=== PATIENT | male | born 1975 | race African-American/Black ===

== ENCOUNTER 2017-06-15 13:28 | Emergency (ER) | payer OTHER ==
[~2017-06-15] VITALS: Ht 180.3 cm; Wt 95.0 kg
[2017-06-15] MEDS ORDERED: KETOROLAC 60MG/2ML VIAL IM ONE (18:45)
[2017-06-15 20:39] VITALS: BP 121/79
== END 2017-06-15 21:07 | disposition home or self-care (01) ==
LOC: ER 13:48
DX: S60.551A Superficial foreign body of right hand, initial encounter (principal); L03.90 Cellulitis, unspecified; Z88.0 Allergy status to penicillin; X58.XXXA Exposure to other specified factors, initial encounter; Y93.89 Activity, other specified; Y92.89 Other specified places as the place of occurrence of the external cause; Y99.8 Other external cause status
CPT/HCPCS: 73130; 96372; 99284; J1885

== ENCOUNTER 2018-06-14 13:15 | Inpatient (IN) | payer SELFPAY ==
[~2018-06-14] VITALS: Ht 180.3 cm; Wt 81.6 kg
[2018-06-14] MEDS ORDERED: SODIUM CHLORIDE 0.9% 1,000 ML IV ONE (13:50)
[2018-06-14] MEDS ORDERED: ASPIRIN 81MG TABLET PO ONE (14:00)
[2018-06-14] MEDS ORDERED: ATENOLOL 25MG TABLET PO ONE (14:00)
[2018-06-14] MEDS ORDERED: LORAZEPAM 2MG/ML CPJ ONE (14:27)
[2018-06-14] MEDS ORDERED: LORAZEPAM 2MG/ML CPJ IV ONE (14:30)
[2018-06-14] MEDS ORDERED: LEVETIRACETAM 500MG PREMIX 100 ML IV ONE (14:30)
[2018-06-14 15:18] LABS: HEMATOCRIT. 37.1 % (42.0-52.0); HEMOGLOBIN. 12.4 g/dL (14.0-18.0); MEAN CORPUSCULAR HEMOGLOBIN 32.1 pg (28.0-32.0); MEAN CORPUSCULAR VOLUME 96.4 fL (80.0-94.0); MEAN PLATELET VOLUME 10.7 fl (7.4-10.4); PLATELET 83 x1000/uL (130-400); RED BLOOD CELL COUNT 3.85 mill/uL (4.7-6.1); RED CELL DISTRIBUTION WIDTH 25.2 % (11.6-14.6)
[2018-06-14 15:26] LABS: CHLORIDE 92 mEq/L (98-107)
[2018-06-14 15:36] LABS: D-DIMER 2.81 mg/L FEU (<0.50); INR 1.2; PARTIAL THROMBOPLASTIN TIME 26.4 sec (23.4-31.0); PROTHROMBIN TIME 12.2 sec (9.1-11.1)
[2018-06-14 15:49] LABS: PLATELET ESTIMATE DECREASED
[2018-06-14] MEDS ORDERED: SODIUM CHLORIDE 0.9% 1000ML BAG (SEPSIS BOLUS) IV ONE (16:00)
[2018-06-14] MEDS ORDERED: FOLIC ACID 1 MG, THIAMINE HCL 100 MG, MVI, ADULT NO.1 10 ML in DEXTROSE 5% WATER 1,000 ML IV ONE ×4 (16:45)
[2018-06-14] MEDS ORDERED: LEVOFLOXACIN 750MG PREMIX 150 ML IV ONE (17:00)
[2018-06-14] MEDS ORDERED: CLONIDINE 0.1MG TABLET PO PRN (17:15)
[2018-06-14] MEDS ORDERED: DOCUSATE SODIUM 100MG CAPSULE PO PRN (17:15)
[2018-06-14] MEDS ORDERED: ONDANSETRON HCL 4MG/2ML INJ IV PRN (17:15)
[2018-06-14] MEDS ORDERED: POTASSIUM CHLORIDE 20MEQ TABLET SR PO SCH (17:30)
[2018-06-14 17:51] LABS: BG BASE EXCESS -1.9 mmol/L (-2.0-2.0); BG CARBOXYHEMOGLOBIN 0.3 % (0.5-1.5); BG DEOXYHEMOGLOBIN 1.9 % (0.0-5.0); BG FRACTION INSPIRED OXYGEN 28; BG METHEMOGLOBIN 0.4 % (0.0-1.5); BG OXYGEN SATURATION 98.1 % (92.0-98.5); BG OXYHEMOGLOBIN 97.4 % (94.0-97.0); BG PH 7.463 (7.350-7.450); BG PO2 125.7 mmHg (75.0-100.0); BG SAMPLE SITE RIGHT RADIAL; BG TOTAL HEMOGLOBIN 11.6 g/dL (12.0-18.0); BG VENT MODE NASAL CANNULA
[2018-06-14] MEDS ORDERED: IOHEXOL-350 100 ML BOTTLE ONE ×2 (18:14→22:15)
[2018-06-15] VITALS (7 sets, daily range): BP systolic 107–137; BP diastolic 50–87
[2018-06-15] MEDS ORDERED: SODIUM BICARBONATE 8.4% 1 MEQ/ML 50ML SYR IV SCH (02:00)
[2018-06-15] MEDS: DEXT 5%/0.45% NACL 1000ML 1,000 ML IV SCH ×2 (02:51→08:39)
[2018-06-15] MEDS: HYDROCODONE/ACETAMINOPHEN 5/325MG TABLET PO PRN ×2 (03:18→08:39)
[2018-06-15] MEDS: MAGNESIUM/ALUMINUM HYDROXIDE/SIMETHICONE 30ML UDC PO PRN ×2 (08:37→22:05)
[2018-06-15] MEDS: ASPIRIN 81MG EC TABLET PO SCH (08:38)
[2018-06-15] MEDS ORDERED: METOPROLOL TARTRATE 25MG TABLET PO SCH (09:00)
[2018-06-15 09:07] LABS: CLARITY URINE CLEAR (CLEAR); COLOR URINE YELLOW (YELLOW); KETONES URINE NEGATIVE (NEGATIVE); LEUKOCYTE ESTERASE URINE NEGATIVE (NEGATIVE); NITRITE URINE NEGATIVE (NEGATIVE); OCCULT BLOOD URINE 1+ (NEGATIVE); PH URINE 6.5 (4.5-8.0); PROTEIN URINE NEGATIVE (NEGATIVE); SPECIFIC GRAVITY URINE 1.008 (1.005-1.030)
[2018-06-15 09:30] LABS: *AMPHETAMINES SCREEN URINE NEGATIVE (NEGATIVE); *BARBITURATES SCREEN URINE NEGATIVE (NEGATIVE); *BENZODIAZEPINES SCREEN URINE NEGATIVE (NEGATIVE); *COCAINE SCREEN URINE NEGATIVE (NEGATIVE); CANNABINOID URINE SCREEN NEGATIVE (NEGATIVE); METHADONE URINE SCREEN NEGATIVE (NEGATIVE); OPIATES URINE SCREEN PRESUMTIVE POSITIVE (NEGATIVE); PHENCYCLIDINE URINE SCREEN NEGATIVE (NEGATIVE)
[2018-06-15 10:19] LABS: HEMATOCRIT. 34.2 % (42.0-52.0); HEMOGLOBIN. 11.9 g/dL (14.0-18.0); MEAN CORPUSCULAR HEMOGLOBIN 32.9 pg (28.0-32.0); PLATELET 63 x1000/uL (130-400); RED CELL DISTRIBUTION WIDTH 24.5 % (11.6-14.6)
[2018-06-15 10:23] LABS: CHLORIDE 99 mEq/L (98-107)
[2018-06-15 10:39] LABS: HDL CHOLESTEROL 12 mg/dL (40-59); LDL CHOLESTEROL 336 mg/dL (5-100); T4 FREE 0.94 ng/dL (0.76-1.46)
[2018-06-15] MEDS ORDERED: POTASSIUM CHLORIDE 20MEQ TABLET SR PO NR (11:15)
[2018-06-15 11:32] LABS: NUCLEATED RED BLOOD CELLS 1 /100 WBC; PLATELET ESTIMATE DECREASED
[2018-06-15] MEDS: LORAZEPAM 2MG/ML CPJ IV PRN ×2 (12:50→22:10)
[2018-06-15] MEDS: METOPROLOL TARTRATE 50MG TABLET PO SCH (20:22)
[2018-06-15] MEDS: CHLORDIAZEPOXIDE 25MG CAPSULE PO SCH (21:12)
[2018-06-16] VITALS: BP 110/58
[2018-06-16 04:00] VITALS: BP 126/73
[2018-06-16] MEDS: CHLORDIAZEPOXIDE 25MG CAPSULE PO SCH ×3 (05:49→21:08)
[2018-06-16 08:00] VITALS: BP 120/86
[2018-06-16] MEDS: ASPIRIN 81MG EC TABLET PO SCH (08:20)
[2018-06-16] MEDS: METOPROLOL TARTRATE 50MG TABLET PO SCH ×2 (08:20→21:08)
[2018-06-16 10:01] LABS: HEMATOCRIT. 33.3 % (42.0-52.0); HEMOGLOBIN. 11.3 g/dL (14.0-18.0); MEAN CORPUSCULAR HEMOGLOBIN 32.3 pg (28.0-32.0); MEAN CORPUSCULAR VOLUME 95.7 fL (80.0-94.0); MEAN PLATELET VOLUME 10.8 fl (7.4-10.4); PLATELET 63 x1000/uL (130-400); RED BLOOD CELL COUNT 3.48 mill/uL (4.7-6.1); RED CELL DISTRIBUTION WIDTH 25.2 % (11.6-14.6)
[2018-06-16 10:11] LABS: CHLORIDE 97 mEq/L (98-107)
[2018-06-16 10:25] LABS: CREATINE KINASE 424 IU/L (39-308); CREATINE KINASE MB FRACTION 2.4 ng/mL (0.5-3.6); HDL CHOLESTEROL 11 mg/dL (40-59); LDL CHOLESTEROL 355 mg/dL (5-100)
[2018-06-16] MEDS: MAGNESIUM/ALUMINUM HYDROXIDE/SIMETHICONE 30ML UDC PO PRN (11:25)
[2018-06-16] MEDS ORDERED: POTASSIUM CHLORIDE 20MEQ TABLET SR PO NR (11:45)
[2018-06-16 12:00] VITALS: BP 120/80
[2018-06-16 12:35] LABS: CHLORIDE 100 mEq/L (98-107)
[2018-06-16 13:42] LABS: NUCLEATED RED BLOOD CELLS 3 /100 WBC
[2018-06-16 13:43] LABS: PLATELET ESTIMATE DECREASED
[2018-06-16 16:00] VITALS: BP 125/85
[2018-06-16 20:00] VITALS: BP 124/93
[2018-06-16] MEDS ORDERED: ATORVASTATIN CALCIUM 40MG TABLET PO SCH (21:00)
[2018-06-17] VITALS: BP 116/74
[2018-06-17 04:00] VITALS: BP 114/70
[2018-06-17 06:29] LABS: HEMATOCRIT. 35.8 % (42.0-52.0); HEMOGLOBIN. 11.9 g/dL (14.0-18.0); MEAN CORPUSCULAR HEMOGLOBIN 32.5 pg (28.0-32.0); MEAN CORPUSCULAR VOLUME 97.9 fL (80.0-94.0); MEAN PLATELET VOLUME 9.9 fl (7.4-10.4); PLATELET 70 x1000/uL (130-400); RED BLOOD CELL COUNT 3.66 mill/uL (4.7-6.1); RED CELL DISTRIBUTION WIDTH 25.2 % (11.6-14.6)
[2018-06-17] MEDS: CHLORDIAZEPOXIDE 25MG CAPSULE PO SCH (06:29)
[2018-06-17 06:43] LABS: CHLORIDE 102 mEq/L (98-107)
[2018-06-17 08:00] VITALS: BP 130/91
[2018-06-17 09:37] LABS: NUCLEATED RED BLOOD CELLS 1 /100 WBC; PLATELET ESTIMATE MARKEDLY DECREASED
[2018-06-17] MEDS: ASPIRIN 81MG EC TABLET PO SCH (09:51)
[2018-06-17] MEDS: METOPROLOL TARTRATE 50MG TABLET PO SCH (09:51)
[2018-06-17 11:42] VITALS: BP 130/91
== END 2018-06-17 12:14 | disposition home or self-care (01) | DRG 201 ==
LOC: ER 13:15 → EDBEDREQSVC 15:57 → ENRESERV 16:17 → CANRESERV 16:17 → ENRESERV 16:21 → CANRESERV 16:21 → SUPCPDRO 17:13 → 8WST 17:35 → EDBEDREQTM 17:39 → EDBEDREQ 17:39 → ENRESERV 21:55
PROVIDERS: ADMIT Hospitalist; ATTEND Hospitalist
DX: I47.1 Supraventricular tachycardia (principal); D69.6 Thrombocytopenia, unspecified; E87.2 Acidosis; E46 Unspecified protein-calorie malnutrition; R56.9 Unspecified convulsions; R07.9 Chest pain, unspecified; F10.239 Alcohol dependence with withdrawal, unspecified; E78.5 Hyperlipidemia, unspecified; E87.6 Hypokalemia; R74.0 Nonspecific elevation of levels of transaminase and lactic acid dehydrogenase [LDH]; F12.90 Cannabis use, unspecified, uncomplicated; I10 Essential (primary) hypertension; Z88.0 Allergy status to penicillin; Z68.25 Body mass index [BMI] 25.0-25.9, adult
CPT/HCPCS: 36415; 36600; 71045; 71275; 80048; 80061; 80305; 82375; 82550; 82553; 82805; 83605; 83735; 83880; 84439; 84443; 84484; 85379; 93005; 93306; 96365; 96366; 96367; 96375; 99291; G0482; J1953; J1956; J2060; J3411; J3490; J7030; J7040; J7070; Q9967

== ENCOUNTER 2018-08-24 23:44 | Emergency (ER) | payer MEDICAID, OTHER ==
[~2018-08-24] VITALS: Ht 180.3 cm; Wt 91.0 kg
[2018-08-25 03:49] LABS: BASOPHILS % 0.4 % (0.0-2.0); HEMATOCRIT. 41.8 % (42.0-52.0); HEMOGLOBIN. 13.8 g/dL (14.0-18.0); MEAN CORPUSCULAR HEMOGLOBIN 29.9 pg (28.0-32.0); MEAN CORPUSCULAR VOLUME 90.8 fL (80.0-94.0); MEAN PLATELET VOLUME 10.1 fl (7.4-10.4); MONOCYTES % 5.4 % (2.0-8.0); NEUTROPHILS % 26.2 % (40.0-76.0); PLATELET 63 x1000/uL (130-400); RED BLOOD CELL COUNT 4.61 mill/uL (4.7-6.1); RED CELL DISTRIBUTION WIDTH 16.8 % (11.6-14.6)
[2018-08-25 03:55] LABS: CHLORIDE 93 mEq/L (98-107)
[2018-08-25] MEDS ORDERED: POTASSIUM CHLORIDE 20MEQ TABLET SR PO ONE (05:15)
[2018-08-25 05:41] VITALS: BP 133/89
[2018-11-15] MEDS ORDERED: FOLI-43 PO (16:54)
[2018-11-15] MEDS ORDERED: LACT10SO7 PO (16:54)
[2018-11-15] MEDS ORDERED: KEPP500 MT (16:54)
[2018-11-15] MEDS ORDERED: THIA100T72 PO (16:54)
== END 2018-08-25 05:43 | disposition home or self-care (01) ==
LOC: ER 23:44
DX: R07.89 Other chest pain (principal); E87.6 Hypokalemia; E78.00 Pure hypercholesterolemia, unspecified; F12.10 Cannabis abuse, uncomplicated; Z88.0 Allergy status to penicillin
CPT/HCPCS: 36415; 71045; 80053; 83880; 84484; 85025; 93005; 99284; Z7610

== ENCOUNTER 2018-11-11 22:54 | Inpatient (IN) | payer MEDICAID ==
[~2018-11-11] VITALS: Ht 180.3 cm; Wt 95.3 kg
[2018-11-12] MEDS ORDERED: SODIUM CHLORIDE 0.9% 1,000 ML IV ONE ×2 (01:21→05:15)
[2018-11-12 01:44] LABS: BASOPHILS % 0.6 % (0.0-2.0); EOSINOPHILS % 0.1 % (0.0-5.0); HEMATOCRIT. 37.7 % (42.0-52.0); HEMOGLOBIN. 13.5 g/dL (14.0-18.0); LYMPHOCYTES % 16.9 % (20.0-50.0); MEAN CORPUSCULAR VOLUME 83.4 fL (80.0-94.0); MONOCYTES % 8.1 % (2.0-8.0); NEUTROPHILS % 74.3 % (40.0-76.0); RED BLOOD CELL COUNT 4.52 mill/uL (4.7-6.1); RED CELL DISTRIBUTION WIDTH 16.3 % (11.6-14.6)
[2018-11-12] MEDS ORDERED: LIDOCAINE HCL/EPINEPHRINE 1%-EPI 1:100,000 30 ML VIAL INFIL ONE (02:00)
[2018-11-12] MEDS ORDERED: ONDANSETRON HCL 4MG/2ML INJ IV ONE (02:00)
[2018-11-12 02:05] LABS: PLATELET 237 x1000/uL (130-400)
[2018-11-12 02:17] LABS: PARTIAL THROMBOPLASTIN TIME 23.8 sec (23.4-31.0); PROTHROMBIN TIME 10.4 sec (9.6-11.0)
[2018-11-12 02:18] LABS: CHLORIDE 83 mEq/L (98-107)
[2018-11-12 02:22] LABS: ETHANOL BLOOD < 10 mg/dL
[2018-11-12] MEDS ORDERED: LIDOCAINE HCL/EPINEPHRINE 1%-EPI 1:100,000 20 ML VIAL INFIL SCH (02:45)
[2018-11-12 02:56] LABS: CLARITY URINE TURBID (CLEAR); COLOR URINE DARK YELLOW (YELLOW); KETONES URINE TRACE (NEGATIVE); LEUKOCYTE ESTERASE URINE 1+ (NEGATIVE); NITRITE URINE POSITIVE (NEGATIVE); OCCULT BLOOD URINE 3+ (NEGATIVE); PROTEIN URINE 2+ (NEGATIVE); SPECIFIC GRAVITY URINE 1.016 (1.005-1.030)
[2018-11-12] MEDS ORDERED: LORAZEPAM 2MG/ML CPJ IV ONE ×3 (03:00→06:00)
[2018-11-12] MEDS ORDERED: HALOPERIDOL LACTATE 5MG/ML VIAL IM ONE (06:15)
[2018-11-12] MEDS ORDERED: DEXT 5%/0.9% NACL 1,000 ML IV ONE (09:30)
[2018-11-12] MEDS ORDERED: LEVETIRACETAM 500MG PREMIX 100 ML IV ONE (10:45)
[2018-11-12] MEDS ORDERED: CEFTRIAXONE 1 G PREMIX 50 ML IV NR (11:30)
[2018-11-12 12:25] VITALS: BP 122/92
[2018-11-12 13:30] LABS: CHLORIDE 90 mEq/L (98-107)
[2018-11-12 13:37] LABS: PHOSPHORUS 3.4 mg/dL (2.5-4.9)
[2018-11-12 13:38] LABS: BETA HYDROXYBUTYRATE 0.9 mMol/L (0.0-0.3)
[2018-11-12 14:00] VITALS: BP 114/74
[2018-11-12 14:28] LABS: HEPATITIS B SURFACE ANTIGEN NEGATIVE
[2018-11-12 14:57] LABS: HEPATITIS A AB IGM NEGATIVE (NEGATIVE)
[2018-11-12] MEDS: DEXT 5%/0.9% NACL 1,000 ML IV SCH (15:55)
[2018-11-12] MEDS: CEFTRIAXONE 1 G PREMIX 50 ML IV SCH (15:55)
[2018-11-12 16:00] VITALS: BP 124/75
[2018-11-12] MEDS ORDERED: NA PHOS,M-B/NA PHOS,DI-BA ENEMA 118ML PR PRN (17:00)
[2018-11-12] MEDS ORDERED: CLONIDINE 0.1MG TABLET PO PRN (17:00)
[2018-11-12] MEDS ORDERED: POTASSIUM CHLORIDE INJ 40 MEQ in DEXT 5% WATER 250 ML IV NR (17:00)
[2018-11-12] MEDS ORDERED: DIPHENHYDRAMINE 50MG/ML VIAL IV PRN (17:00)
[2018-11-12] MEDS ORDERED: GUAIFENESIN 200MG/10ML SUGAR FREE UDC PO PRN (17:00)
[2018-11-12] MEDS ORDERED: ACETAMINOPHEN 650MG SUPP PR PRN (17:00)
[2018-11-12] MEDS ORDERED: ONDANSETRON HCL 4MG/2ML INJ IV PRN (17:00)
[2018-11-12] MEDS ORDERED: POTASSIUM CHLORIDE 20MEQ TABLET SR PO PRN (17:00)
[2018-11-12] MEDS ORDERED: ACETAMINOPHEN 325MG TABLET PO PRN (17:00)
[2018-11-12] MEDS ORDERED: DOCUSATE SODIUM 100MG CAPSULE PO PRN (17:00)
[2018-11-12] MEDS ORDERED: MAGNESIUM/ALUMINUM HYDROXIDE/SIMETHICONE 30ML UDC PO PRN (17:00)
[2018-11-12] MEDS ORDERED: IPRATROPIUM/ALBUTEROL 0.5-3(2.5)MG/3ML NEB INH PRN (17:00)
[2018-11-12 18:00] VITALS: BP 136/82
[2018-11-12 20:00] VITALS: BP 119/82
[2018-11-12] MEDS: LEVETIRACETAM 500 MG in SODIUM CHLORIDE 0.9% 100 ML IV SCH (21:32)
[2018-11-12] MEDS: SODIUM CHLORIDE 0.9% INJ 3ML FLUSH IVF SCH (21:32)
[2018-11-12 22:00] VITALS: BP 155/74
[2018-11-12 23:31] LABS: CLARITY URINE CLEAR (CLEAR); COLOR URINE YELLOW (YELLOW); KETONES URINE NEGATIVE (NEGATIVE); LEUKOCYTE ESTERASE URINE NEGATIVE (NEGATIVE); NITRITE URINE NEGATIVE (NEGATIVE); OCCULT BLOOD URINE 3+ (NEGATIVE); PH URINE 5.5 (4.5-8.0); PROTEIN URINE TRACE (NEGATIVE)
[2018-11-12 23:42] LABS: CANNABINOID URINE SCREEN PRESUMTIVE POSITIVE (NEGATIVE); METHADONE URINE SCREEN NEGATIVE (NEGATIVE); OPIATES URINE SCREEN NEGATIVE (NEGATIVE); PHENCYCLIDINE URINE SCREEN NEGATIVE (NEGATIVE)
[2018-11-12 23:43] LABS: *AMPHETAMINES SCREEN URINE NEGATIVE (NEGATIVE); *BARBITURATES SCREEN URINE NEGATIVE (NEGATIVE)
[2018-11-12 23:50] LABS: *COCAINE SCREEN URINE NEGATIVE (NEGATIVE)
[2018-11-12 23:51] LABS: *BENZODIAZEPINES SCREEN URINE NEGATIVE (NEGATIVE)
[2018-11-13] VITALS (14 sets, daily range): BP systolic 115–164; BP diastolic 26–95
[2018-11-13] MEDS: SODIUM CHLORIDE 0.9% INJ 3ML FLUSH IVF SCH ×3 (05:13→21:19)
[2018-11-13 05:44] LABS: HEMATOCRIT. 31.1 % (42.0-52.0); HEMOGLOBIN. 10.8 g/dL (14.0-18.0); MEAN CORPUSCULAR HEMOGLOBIN 29.6 pg (28.0-32.0); MEAN CORPUSCULAR VOLUME 85.6 fL (80.0-94.0); MEAN PLATELET VOLUME 8.7 fl (7.4-10.4); PLATELET 137 x1000/uL (130-400); RED BLOOD CELL COUNT 3.64 mill/uL (4.7-6.1)
[2018-11-13 08:05] LABS: CHLORIDE 90 mEq/L (98-107)
[2018-11-13 08:29] LABS: PHOSPHORUS 2.4 mg/dL (2.5-4.9)
[2018-11-13 08:30] LABS: LDL CHOLESTEROL 116 mg/dL (5-100)
[2018-11-13 08:32] LABS: HDL CHOLESTEROL 30 mg/dL (40-59)
[2018-11-13] MEDS: LEVETIRACETAM 500 MG in SODIUM CHLORIDE 0.9% 100 ML IV SCH ×2 (09:27→21:18)
[2018-11-13] MEDS: FOLIC ACID 1MG TABLET PO SCH (09:27)
[2018-11-13] MEDS: THIAMINE HCL 100MG TABLET PO SCH (09:28)
[2018-11-13] MEDS: DEXT 5%/0.9% NACL 1,000 ML IV SCH ×2 (09:29→12:00)
[2018-11-13] MEDS: CEFTRIAXONE 1 G PREMIX 50 ML IV SCH (13:14)
[2018-11-13 13:52] LABS: NUCLEATED RED BLOOD CELLS 5 /100 WBC; PLATELET ESTIMATE NORMAL
[2018-11-13] MEDS: LACTULOSE 20G/30ML UDC PO SCH ×2 (16:41→16:43)
[2018-11-13] MEDS: DEXT 5%/0.9% NACL KCL 20MEQ/L 1,000 ML IV SCH (16:41)
[2018-11-13] MEDS: NEOMY SULF/BACITRAC ZN/POLY OINT 28GM TOP SCH (21:19)
[2018-11-14] VITALS (13 sets, daily range): BP systolic 117–185; BP diastolic 51–93
[2018-11-14] MEDS: DEXT 5%/0.9% NACL KCL 20MEQ/L 1,000 ML IV SCH (02:52)
[2018-11-14] MEDS: LORAZEPAM 2MG/ML CPJ IV PRN ×3 (03:00→17:21)
[2018-11-14 05:06] LABS: BASOPHILS % 0.4 % (0.0-2.0); EOSINOPHILS % 0.5 % (0.0-5.0); HEMOGLOBIN. 9.5 g/dL (14.0-18.0); LYMPHOCYTES % 37.6 % (20.0-50.0); MEAN CORPUSCULAR HEMOGLOBIN 29.9 pg (28.0-32.0); MEAN CORPUSCULAR VOLUME 87.7 fL (80.0-94.0); MEAN PLATELET VOLUME 8.6 fl (7.4-10.4); MONOCYTES % 14.3 % (2.0-8.0); NEUTROPHILS % 47.2 % (40.0-76.0); PLATELET 148 x1000/uL (130-400); RED BLOOD CELL COUNT 3.19 mill/uL (4.7-6.1); RED CELL DISTRIBUTION WIDTH 15.9 % (11.6-14.6)
[2018-11-14] MEDS: SODIUM CHLORIDE 0.9% INJ 3ML FLUSH IVF SCH ×3 (05:19→21:42)
[2018-11-14 05:47] LABS: CHLORIDE 97 mEq/L (98-107)
[2018-11-14 05:54] LABS: PHOSPHORUS 2.1 mg/dL (2.5-4.9)
[2018-11-14] MEDS: THIAMINE HCL 100MG TABLET PO SCH (09:34)
[2018-11-14] MEDS: FOLIC ACID 1MG TABLET PO SCH (09:34)
[2018-11-14] MEDS: LEVETIRACETAM 500 MG in SODIUM CHLORIDE 0.9% 100 ML IV SCH ×2 (09:34→21:41)
[2018-11-14] MEDS: LACTULOSE 20G/30ML UDC PO SCH ×2 (09:34→17:14)
[2018-11-14] MEDS: NEOMY SULF/BACITRAC ZN/POLY OINT 28GM TOP SCH ×2 (10:10→20:50)
[2018-11-14] MEDS: CEFTRIAXONE 1 G PREMIX 50 ML IV SCH (13:41)
[2018-11-14] MEDS ORDERED: POTASSIUM PHOS,M-BASIC-D-BASIC 30 MMOL in SODIUM CHLORIDE 0.9% 500 ML IV NR (18:30)
[2018-11-15] VITALS (9 sets, daily range): BP systolic 113–148; BP diastolic 65–94
[2018-11-15] MEDS: LORAZEPAM 2MG/ML CPJ IV PRN (03:56)
[2018-11-15] MEDS: SODIUM CHLORIDE 0.9% INJ 3ML FLUSH IVF SCH ×2 (05:20→14:00)
[2018-11-15 06:38] LABS: HEMATOCRIT. 28.4 % (42.0-52.0); HEMOGLOBIN. 9.7 g/dL (14.0-18.0); MEAN CORPUSCULAR VOLUME 87.7 fL (80.0-94.0); MEAN PLATELET VOLUME 8.1 fl (7.4-10.4); PLATELET 198 x1000/uL (130-400); RED BLOOD CELL COUNT 3.23 mill/uL (4.7-6.1)
[2018-11-15 07:06] LABS: CHLORIDE 99 mEq/L (98-107)
[2018-11-15 07:18] LABS: PHOSPHORUS 3.2 mg/dL (2.5-4.9)
[2018-11-15] MEDS: LACTULOSE 20G/30ML UDC PO SCH ×2 (09:23→16:37)
[2018-11-15] MEDS: THIAMINE HCL 100MG TABLET PO SCH (09:23)
[2018-11-15] MEDS: FOLIC ACID 1MG TABLET PO SCH (09:23)
[2018-11-15] MEDS: LEVETIRACETAM 500 MG in SODIUM CHLORIDE 0.9% 100 ML IV SCH (09:23)
[2018-11-15] MEDS: NEOMY SULF/BACITRAC ZN/POLY OINT 28GM TOP SCH (09:24)
[2018-11-15] MEDS ORDERED: MAGNESIUM 2 G PREMIX 50 ML IV NR (11:00)
[2018-11-15 11:31] LABS: PLATELET ESTIMATE NORMAL
[2018-11-15] MEDS: CEFTRIAXONE 1 G PREMIX 50 ML IV SCH (13:58)
[2018-11-15] MEDS ORDERED: KEPP500 MT (16:54)
[2018-11-15] MEDS ORDERED: FOLI-43 PO (16:54)
[2018-11-15] MEDS ORDERED: THIA100T72 PO (16:54)
[2018-11-15] MEDS ORDERED: LACT10SO7 PO (16:54)
== END 2018-11-15 17:40 | disposition home or self-care (01) | DRG 720 ==
LOC: ER 22:54 → ENRESERV 11-12 10:56 → 5EST 11-12 11:59 → 6EST 11-15 15:15
PROVIDERS: ADMIT Family Medicine; ATTEND Family Medicine
DX: A41.9 Sepsis, unspecified organism (principal); N17.0 Acute kidney failure with tubular necrosis; G93.41 Metabolic encephalopathy; E43 Unspecified severe protein-calorie malnutrition; E87.1 Hypo-osmolality and hyponatremia; K70.10 Alcoholic hepatitis without ascites; S61.519A Laceration without foreign body of unspecified wrist, initial encounter; D64.9 Anemia, unspecified; D72.829 Elevated white blood cell count, unspecified; E86.0 Dehydration; E87.6 Hypokalemia; F32.9 Major depressive disorder, single episode, unspecified; N39.0 Urinary tract infection, site not specified; E78.5 Hyperlipidemia, unspecified
CPT/HCPCS: 36415; 76705; 80061; 80076; 80305; 80307; 80320; 82010; 82140; 82248; 83735; 83930; 83935; 84100; 84134; 86705; 86709; 86803; 87340; 96361; 96374; 96375; 97162; 99285; J0696; J1630; J1953; J2060; J2405; J3475; J3480; J3490; J7030; J7040; J7042; J7050; J7060; G0480

== ENCOUNTER 2018-12-13 15:29 | Emergency (ER) | payer MEDICAID ==
[~2018-12-13] VITALS: Ht 177.8 cm; Wt 91.0 kg
[~2018-12-13 15:29] MED LIST: FOLI-43 PO; KEPP500 MT; LACT10SO7 PO; THIA100T72 PO
[2018-12-13 15:41] VITALS: BP 144/92
[2018-12-13] MEDS ORDERED: ACETAMINOPHEN 325MG TABLET PO ONE (16:30)
== END 2018-12-13 18:13 | disposition home or self-care (01) ==
LOC: ER 15:29
DX: S43.101A Unspecified dislocation of right acromioclavicular joint, initial encounter (principal); F12.10 Cannabis abuse, uncomplicated; Z88.0 Allergy status to penicillin; Z98.890 Other specified postprocedural states; X58.XXXA Exposure to other specified factors, initial encounter; Y93.9 Activity, unspecified; Y92.89 Other specified places as the place of occurrence of the external cause; Y99.8 Other external cause status
CPT/HCPCS: 73030; 99283; L3670

== ENCOUNTER 2019-04-19 18:36 | Inpatient (IN) | payer MEDICAID ==
[~2019-04-19] VITALS: Ht 180.3 cm; Wt 92.1 kg
[2019-04-19] MEDS ORDERED: FAMOTIDINE 20MG/2ML VIAL IV STA (19:52)
[2019-04-19] MEDS ORDERED: SODIUM CHLORIDE 0.9% 1,000 ML IV ONE (19:52)
[2019-04-19] MEDS ORDERED: ONDANSETRON HCL 4MG/2ML INJ IV STA (19:52)
[2019-04-19] MEDS ORDERED: LEVETIRACETAM 500MG PREMIX 100 ML IV ONE (20:15)
[2019-04-19 20:35] LABS: BASOPHILS % 1.3 % (0.0-2.0); EOSINOPHILS % 0.1 % (0.0-5.0); HEMATOCRIT. 38.4 % (42.0-52.0); HEMOGLOBIN. 13.6 g/dL (14.0-18.0); LYMPHOCYTES % 27.5 % (20.0-50.0); MEAN CORPUSCULAR HEMOGLOBIN 36.2 pg (28.0-32.0); MEAN CORPUSCULAR VOLUME 102.4 fL (80.0-94.0); MEAN PLATELET VOLUME 9.7 fl (7.4-10.4); MONOCYTES % 11.5 % (2.0-8.0); NEUTROPHILS % 59.6 % (40.0-76.0); PLATELET 85 x1000/uL (130-400); RED BLOOD CELL COUNT 3.75 mill/uL (4.7-6.1); RED CELL DISTRIBUTION WIDTH 16.3 % (11.6-14.6)
[2019-04-19 20:40] LABS: CHLORIDE 98 mEq/L (98-107); INR 1.4; PROTHROMBIN TIME 14.2 sec (9.6-11.0)
[2019-04-19 21:08] LABS: ETHANOL BLOOD 458 mg/dL
[2019-04-19] MEDS ORDERED: POTASSIUM CHLORIDE 20MEQ TABLET SR PO ONE (21:30)
[2019-04-19] MEDS ORDERED: MORPHINE SULFATE 4 MG/ML CPJ (NOT FOR IM USE) IV ONE (21:30)
[2019-04-19] MEDS ORDERED: KCL 20MEQ/100ML PREMIX 100 ML IV ONE (21:30)
[2019-04-19] MEDS ORDERED: MAGNESIUM 2 G PREMIX 50 ML IV ONE (21:30)
[2019-04-19] MEDS ORDERED: LEVOFLOXACIN 500MG PREMIX 100 ML IV ONE (22:30)
[2019-04-19] MEDS ORDERED: METRONIDAZOLE 500 MG PREMIX 100 ML IV ONE (22:30)
[2019-04-19 22:41] LABS: CLARITY URINE CLEAR (CLEAR); COLOR URINE DARK YELLOW (YELLOW); KETONES URINE NEGATIVE (NEGATIVE); LEUKOCYTE ESTERASE URINE NEGATIVE (NEGATIVE); NITRITE URINE NEGATIVE (NEGATIVE); OCCULT BLOOD URINE NEGATIVE (NEGATIVE); PH URINE 7.5 (4.5-8.0); PROTEIN URINE NEGATIVE (NEGATIVE); SPECIFIC GRAVITY URINE 1.007 (1.005-1.030)
[2019-04-19 22:53] LABS: *BENZODIAZEPINES SCREEN URINE NEGATIVE (NEGATIVE); *COCAINE SCREEN URINE NEGATIVE (NEGATIVE); METHADONE URINE SCREEN NEGATIVE (NEGATIVE); OPIATES URINE SCREEN NEGATIVE (NEGATIVE)
[2019-04-19 22:54] LABS: *AMPHETAMINES SCREEN URINE NEGATIVE (NEGATIVE); *BARBITURATES SCREEN URINE NEGATIVE (NEGATIVE); CANNABINOID URINE SCREEN NEGATIVE (NEGATIVE); PHENCYCLIDINE URINE SCREEN NEGATIVE (NEGATIVE)
[2019-04-20] VITALS (7 sets, daily range): BP systolic 110–137; BP diastolic 61–84
[2019-04-20] MEDS ORDERED: ONDANSETRON HCL 4MG/2ML INJ IV PRN (01:15)
[2019-04-20] MEDS ORDERED: MAGNESIUM/ALUMINUM HYDROXIDE/SIMETHICONE 30ML UDC PO PRN (01:15)
[2019-04-20] MEDS ORDERED: MAGNESIUM HYDROXIDE 400MG/5ML 30ML UDC PO PRN (01:15)
[2019-04-20] MEDS ORDERED: ATOR10TA MT (03:23)
[2019-04-20] MEDS ORDERED: ATEN-42 MT (03:23)
[2019-04-20] MEDS ORDERED: MVI, ADULT NO.1 10 ML, FOLIC ACID 1 MG, THIAMINE HCL 100 MG in SODIUM CHLORIDE 0.9% 1,0... IV NR ×4 (04:00)
[2019-04-20] MEDS: DEXT 5%/0.45% NACL KCL 40MEQ/L 1,000 ML IV SCH (04:27)
[2019-04-20] MEDS ORDERED: POTASSIUM CHLORIDE INJ 40 MEQ in DEXT 5% WATER 250 ML IV NR (05:00)
[2019-04-20] MEDS ORDERED: CHLORDIAZEPOXIDE 25MG CAPSULE PO SCH (06:00)
[2019-04-20 06:36] LABS: HEMATOCRIT 34.8 % (42.0-52.0); HEMOGLOBIN 12.2 g/dL (14.0-18.0); MEAN CORPUSCULAR HEMOGLOBIN 35.9 pg (28.0-32.0); MEAN CORPUSCULAR VOLUME 102.1 fL (80.0-94.0); PLATELET 76 x1000/uL (130-400); RED BLOOD CELL COUNT 3.41 mill/uL (4.7-6.1); RED CELL DISTRIBUTION WIDTH 16.7 % (11.6-14.6)
[2019-04-20 06:47] LABS: CHLORIDE 100 mEq/L (98-107)
[2019-04-20 06:56] LABS: PHOSPHORUS 2.8 mg/dL (2.5-4.9)
[2019-04-20] MEDS: ATENOLOL 50 MG TABLET PO SCH (09:46)
[2019-04-20] MEDS: FAMOTIDINE 20MG/2ML VIAL IV SCH ×2 (09:47→21:25)
[2019-04-20] MEDS: LORAZEPAM 2MG/ML CPJ IV PRN ×2 (09:47→21:50)
[2019-04-20] MEDS ORDERED: POTASSIUM CHLORIDE 20MEQ TABLET SR PO NR (14:00)
[2019-04-20] MEDS: CHLORDIAZEPOXIDE 25MG CAPSULE PO SCH (21:26)
[2019-04-21] VITALS: BP 132/80
[2019-04-21] MEDS: DEXT 5%/0.45% NACL KCL 40MEQ/L 1,000 ML IV SCH ×2 (00:20→13:46)
[2019-04-21 04:00] VITALS: BP 118/74
[2019-04-21] MEDS: CHLORDIAZEPOXIDE 25MG CAPSULE PO SCH ×3 (04:53→21:02)
[2019-04-21 08:00] VITALS: BP 104/66
[2019-04-21] MEDS ORDERED: SODIUM BICARBONATE 4% (2.4MEQ) 5ML VIAL IV ONE (08:00)
[2019-04-21] MEDS ORDERED: LIDOCAINE HCL 1% 20ML VIAL (Pyxis) INJ ONE (08:00)
[2019-04-21] MEDS: ATENOLOL 50 MG TABLET PO SCH (09:00)
[2019-04-21] MEDS: FAMOTIDINE 20MG/2ML VIAL IV SCH ×2 (11:17→20:42)
[2019-04-21 11:52] LABS: BASOPHILS % 1.4 % (0.0-2.0); EOSINOPHILS % 0.6 % (0.0-5.0); HEMATOCRIT. 42.3 % (42.0-52.0); HEMOGLOBIN. 14.7 g/dL (14.0-18.0); LYMPHOCYTES % 32.9 % (20.0-50.0); MEAN CORPUSCULAR VOLUME 103.9 fL (80.0-94.0); MEAN PLATELET VOLUME 10.2 fl (7.4-10.4); MONOCYTES % 8.3 % (2.0-8.0); NEUTROPHILS % 56.8 % (40.0-76.0); PLATELET 71 x1000/uL (130-400); RED BLOOD CELL COUNT 4.07 mill/uL (4.7-6.1); RED CELL DISTRIBUTION WIDTH 17.1 % (11.6-14.6)
[2019-04-21 11:58] LABS: CHLORIDE 98 mEq/L (98-107)
[2019-04-21 12:00] VITALS: BP 130/65
[2019-04-21 12:04] LABS: PHOSPHORUS 1.6 mg/dL (2.5-4.9)
[2019-04-21] MEDS ORDERED: POTASSIUM CHLORIDE 20MEQ TABLET SR PO NR (13:00)
[2019-04-21] MEDS: LORAZEPAM 2MG/ML CPJ IV PRN ×2 (13:46→21:55)
[2019-04-21] MEDS ORDERED: MAGNESIUM 2 G PREMIX 50 ML IV NR (14:00)
[2019-04-21] MEDS ORDERED: POTASSIUM PHOS,M-BASIC-D-BASIC 30 MMOL in DEXT 5% WATER 500 ML IV NR (14:30)
[2019-04-21 16:00] VITALS: BP 91/52
[2019-04-21 20:00] VITALS: BP 127/78
[2019-04-21] MEDS: ACETAMINOPHEN 325MG TABLET PO PRN (20:42)
[2019-04-21] MEDS: LOPERAMIDE HCL 2MG CAPSULE PO PRN (20:42)
[2019-04-21] MEDS: DIPHENHYDRAMINE 50MG/ML VIAL IV PRN (22:08)
[2019-04-21] MEDS: KETOROLAC 30MG/ML VIAL IV PRN (22:27)
[2019-04-22] VITALS: BP 126/76
[2019-04-22] MEDS: LOPERAMIDE HCL 2MG CAPSULE PO PRN ×2 (01:43→21:15)
[2019-04-22] MEDS: LORAZEPAM 2MG/ML CPJ IV PRN ×2 (01:56→20:28)
[2019-04-22 04:00] VITALS: BP 122/87
[2019-04-22 06:12] LABS: CHLORIDE 107 mEq/L (98-107)
[2019-04-22 06:28] LABS: BASOPHILS % 1.3 % (0.0-2.0); EOSINOPHILS % 1.1 % (0.0-5.0); HEMATOCRIT. 38.5 % (42.0-52.0); HEMOGLOBIN. 13.3 g/dL (14.0-18.0); LYMPHOCYTES % 32.1 % (20.0-50.0); MEAN CORPUSCULAR VOLUME 104.1 fL (80.0-94.0); MEAN PLATELET VOLUME 10.1 fl (7.4-10.4); MONOCYTES % 12.5 % (2.0-8.0); PLATELET 58 x1000/uL (130-400); RED CELL DISTRIBUTION WIDTH 17.2 % (11.6-14.6)
[2019-04-22] MEDS: CHLORDIAZEPOXIDE 25MG CAPSULE PO SCH ×3 (06:43→21:15)
[2019-04-22 08:02] VITALS: BP 117/85
[2019-04-22] MEDS: FAMOTIDINE 20MG/2ML VIAL IV SCH ×2 (08:50→20:29)
[2019-04-22] MEDS: ATENOLOL 50 MG TABLET PO SCH (08:50)
[2019-04-22 11:52] VITALS: BP 107/73
[2019-04-22] MEDS: ACETAMINOPHEN 325MG TABLET PO PRN (13:19)
[2019-04-22] MEDS: DEXT 5%/0.45% NACL KCL 40MEQ/L 1,000 ML IV SCH ×2 (13:19→23:39)
[2019-04-22 16:19] VITALS: BP 108/74
[2019-04-22] MEDS ORDERED: POTASSIUM PHOS,M-BASIC-D-BASIC 20 MMOL in DEXT 5% WATER 243.3333 ML IV NR (17:30)
[2019-04-22] MEDS ORDERED: SODIUM CHLORIDE 10% FOR INH 15ML VIAL NEB INH SCH (17:30)
[2019-04-22 20:00] VITALS: BP 108/71
[2019-04-22] MEDS: DIPHENHYDRAMINE 50MG/ML VIAL IV PRN (21:16)
[2019-04-22] MEDS: KETOROLAC 30MG/ML VIAL IV PRN (21:17)
[2019-04-23] VITALS: BP 102/67
[2019-04-23] MEDS: LORAZEPAM 2MG/ML CPJ IV PRN (00:28)
[2019-04-23] MEDS: DIPHENHYDRAMINE 50MG/ML VIAL IV PRN (01:18)
[2019-04-23 04:00] VITALS: BP 103/64
[2019-04-23] MEDS: CHLORDIAZEPOXIDE 25MG CAPSULE PO SCH ×2 (05:28→15:44)
[2019-04-23 08:00] VITALS: BP 100/64
[2019-04-23 08:10] LABS: CHLORIDE 105 mEq/L (98-107)
[2019-04-23 08:16] LABS: PHOSPHORUS 3.3 mg/dL (2.5-4.9)
[2019-04-23 08:18] LABS: EOSINOPHILS % 1.4 % (0.0-5.0); HEMATOCRIT. 36.3 % (42.0-52.0); HEMOGLOBIN. 12.5 g/dL (14.0-18.0); LYMPHOCYTES % 34.4 % (20.0-50.0); MEAN CORPUSCULAR HEMOGLOBIN 35.9 pg (28.0-32.0); MEAN CORPUSCULAR VOLUME 104.1 fL (80.0-94.0); MEAN PLATELET VOLUME 10.2 fl (7.4-10.4); NEUTROPHILS % 51.2 % (40.0-76.0); PLATELET 73 x1000/uL (130-400); RED BLOOD CELL COUNT 3.49 mill/uL (4.7-6.1); RED CELL DISTRIBUTION WIDTH 17.6 % (11.6-14.6)
[2019-04-23] MEDS: ATENOLOL 50 MG TABLET PO SCH (09:00)
[2019-04-23] MEDS: FAMOTIDINE 20MG/2ML VIAL IV SCH ×2 (09:24→21:01)
[2019-04-23] MEDS ORDERED: POTASSIUM CHLORIDE 20MEQ/PACKET PO NR (11:07)
[2019-04-23 11:53] VITALS: BP 100/58
[2019-04-23] MEDS ORDERED: MAGNESIUM 2 G PREMIX 50 ML IV NR (13:00)
[2019-04-23 16:07] VITALS: BP 107/74
[2019-04-23 20:00] VITALS: BP 104/74
[2019-04-24] VITALS: BP 102/70
[2019-04-24 04:00] VITALS: BP 106/69
[2019-04-24 06:18] LABS: BASOPHILS % 1.3 % (0.0-2.0); EOSINOPHILS % 0.8 % (0.0-5.0); HEMATOCRIT. 37.9 % (42.0-52.0); HEMOGLOBIN. 13.1 g/dL (14.0-18.0); LYMPHOCYTES % 32.1 % (20.0-50.0); MEAN CORPUSCULAR VOLUME 103.9 fL (80.0-94.0); MEAN PLATELET VOLUME 10.4 fl (7.4-10.4); MONOCYTES % 13.8 % (2.0-8.0); PLATELET 82 x1000/uL (130-400); RED BLOOD CELL COUNT 3.65 mill/uL (4.7-6.1); RED CELL DISTRIBUTION WIDTH 17.7 % (11.6-14.6)
[2019-04-24 06:21] LABS: CHLORIDE 105 mEq/L (98-107)
[2019-04-24 06:29] LABS: PHOSPHORUS 3.3 mg/dL (2.5-4.9)
[2019-04-24 07:21] LABS: CLARITY URINE CLOUDY (CLEAR); COLOR URINE DARK YELLOW (YELLOW); KETONES URINE NEGATIVE (NEGATIVE); LEUKOCYTE ESTERASE URINE 1+ (NEGATIVE); NITRITE URINE POSITIVE (NEGATIVE); OCCULT BLOOD URINE NEGATIVE (NEGATIVE); PH URINE 6.5 (4.5-8.0); PROTEIN URINE TRACE (NEGATIVE); SPECIFIC GRAVITY URINE 1.021 (1.005-1.030)
[2019-04-24 07:38] LABS: *AMPHETAMINES SCREEN URINE NEGATIVE (NEGATIVE); *BARBITURATES SCREEN URINE NEGATIVE (NEGATIVE); *BENZODIAZEPINES SCREEN URINE PRESUMTIVE POSITIVE (NEGATIVE); *COCAINE SCREEN URINE NEGATIVE (NEGATIVE); METHADONE URINE SCREEN NEGATIVE (NEGATIVE); OPIATES URINE SCREEN NEGATIVE (NEGATIVE)
[2019-04-24 07:39] LABS: CANNABINOID URINE SCREEN NEGATIVE (NEGATIVE); PHENCYCLIDINE URINE SCREEN NEGATIVE (NEGATIVE)
[2019-04-24 08:00] VITALS: BP 106/70
[2019-04-24] MEDS: FAMOTIDINE 20MG/2ML VIAL IV SCH ×2 (11:23→21:45)
[2019-04-24] MEDS: KETOROLAC 30MG/ML VIAL IV PRN (11:25)
[2019-04-24 12:00] VITALS: BP 113/73
[2019-04-24 16:00] VITALS: BP 91/59
[2019-04-24 20:00] VITALS: BP 105/73
[2019-04-25] VITALS (10 sets, daily range): BP systolic 110–152; BP diastolic 72–132
[2019-04-25] MEDS: FAMOTIDINE 20MG/2ML VIAL IV SCH ×2 (08:10→20:17)
[2019-04-25] MEDS: THIAMINE HCL 100MG TABLET PO SCH ×2 (14:15→20:26)
[2019-04-25] MEDS: IPRATROPIUM/ALBUTEROL 0.5-3(2.5)MG/3ML NEB HHN PRN (21:26)
[2019-04-26 00:07] VITALS: BP 116/88
[2019-04-26 04:00] VITALS: BP 133/69
[2019-04-26 08:00] VITALS: BP 108/76
[2019-04-26] MEDS: THIAMINE HCL 100MG TABLET PO SCH (09:54)
[2019-04-26] MEDS: FAMOTIDINE 20MG/2ML VIAL IV SCH ×2 (09:54→21:12)
[2019-04-26 12:00] VITALS: BP 109/77
[2019-04-26 16:00] VITALS: BP 127/80
[2019-04-26 20:00] VITALS: BP 120/87
[2019-04-26] MEDS: IPRATROPIUM/ALBUTEROL 0.5-3(2.5)MG/3ML NEB HHN PRN (21:26)
[2019-04-27] VITALS: BP 108/60
[2019-04-27] MEDS: IPRATROPIUM/ALBUTEROL 0.5-3(2.5)MG/3ML NEB HHN PRN ×2 (01:10→20:21)
[2019-04-27 04:00] VITALS: BP 120/81
[2019-04-27 08:31] VITALS: BP 126/79
[2019-04-27] MEDS: THIAMINE HCL 100MG TABLET PO SCH (09:27)
[2019-04-27] MEDS: FAMOTIDINE 20MG/2ML VIAL IV SCH ×2 (09:27→21:00)
[2019-04-27 12:12] VITALS: BP 102/66
[2019-04-27 15:37] VITALS: BP 130/70
[2019-04-28] VITALS: BP 146/57
[2019-04-28 04:00] VITALS: BP 121/85
[2019-04-28 08:00] VITALS: BP 130/80
[2019-04-28] MEDS: THIAMINE HCL 100MG TABLET PO SCH (10:10)
[2019-04-28 12:00] VITALS: BP 111/78
[2019-04-28] MEDS: FAMOTIDINE 20MG/2ML VIAL IV SCH (13:17)
[2019-04-28] MEDS ORDERED: LACTULOSE 20G/30ML UDC PO SCH (14:00)
[2019-04-28 14:19] VITALS: BP 111/78
[2019-04-28 16:00] VITALS: BP 114/79
[2019-04-28 16:09] LABS: HEMATOCRIT. 37.9 % (42.0-52.0); MEAN CORPUSCULAR VOLUME 105.1 fL (80.0-94.0); MEAN PLATELET VOLUME 10.5 fl (7.4-10.4); PLATELET 130 x1000/uL (130-400); RED BLOOD CELL COUNT 3.61 mill/uL (4.7-6.1); RED CELL DISTRIBUTION WIDTH 18.1 % (11.6-14.6)
[2019-04-28 16:14] LABS: INR 1.4; PROTHROMBIN TIME 14.7 sec (9.6-11.0)
[2019-04-28 16:15] LABS: CHLORIDE 107 mEq/L (98-107)
[2019-04-28 17:29] LABS: PLATELET ESTIMATE NORMAL
[2019-04-28] MEDS ORDERED: FAMOTIDINE 20MG TABLET PO SCH (21:00)
== END 2019-04-28 17:18 | DRG 812 ==
LOC: ER 18:36 → EDBEDREQ 21:23 → 7WST 22:04 → EDBEDREQTM 22:06 → EDBEDREQ 22:06 → CANRESERV 22:30 → ENRESERV 22:30 → 7WST 04-22 20:34 → 6EST 04-27 22:18
PROVIDERS: ADMIT Internal Medicine; ATTEND Internal Medicine
PROC: 0W9G3ZZ Drainage of Peritoneal Cavity, Percutaneous Approach (ICD-10-PCS; principal; 2019-04-21)
DX: T51.8X1A Toxic effect of other alcohols, accidental (unintentional), initial encounter (principal); K85.90 Acute pancreatitis without necrosis or infection, unspecified; R18.8 Other ascites; K74.60 Unspecified cirrhosis of liver; E87.6 Hypokalemia; F10.239 Alcohol dependence with withdrawal, unspecified; I10 Essential (primary) hypertension; E11.9 Type 2 diabetes mellitus without complications; E78.00 Pure hypercholesterolemia, unspecified; E66.9 Obesity, unspecified; Z68.28 Body mass index [BMI] 28.0-28.9, adult; Z79.899 Other long term (current) drug therapy; Z88.0 Allergy status to penicillin; Z83.3 Family history of diabetes mellitus; Y92.89 Other specified places as the place of occurrence of the external cause
CPT/HCPCS: 36415; 49083; 71045; 74176; 76705; 80048; 80305; 80320; 81003; 82140; 83735; 84100; 84484; 85027; 87070; 93005; 93970; 94640; 96365; 97162; 97166; 97530; 99291; A6261; C1893; J1200; J1885; J1953; J1956; J2060; J2405; J3411; J3475; J3480; J3490; J7030; J7060; J7131; J7620; G0480

== ENCOUNTER 2019-06-21 15:58 | Emergency (ER) | payer MEDICAID ==
[~2019-06-21] VITALS: Ht 182.9 cm; Wt 100.0 kg
[~2019-06-21 15:58] MED LIST changes: -FOLI-43 PO; -KEPP500 MT
[2019-06-21] MEDS ORDERED: ONDANSETRON HCL 4MG/2ML INJ IV ONE (17:00)
[2019-06-21] MEDS ORDERED: FOLIC ACID 1 MG, THIAMINE HCL 100 MG, MVI, ADULT NO.1 10 ML in DEXTROSE 5% WATER 1,000 ML IV ONE ×4 (17:00)
[2019-06-21 18:24] LABS: HEMATOCRIT. 41.2 % (42.0-52.0); MEAN CORPUSCULAR HEMOGLOBIN 33.4 pg (28.0-32.0); RED CELL DISTRIBUTION WIDTH 14.3 % (11.6-14.6)
[2019-06-21 18:34] LABS: CHLORIDE 106 mEq/L (98-107)
[2019-06-21 18:41] LABS: ETHANOL BLOOD 390 mg/dL
[2019-06-21 18:56] LABS: MEAN PLATELET VOLUME 9.8 fl (7.4-10.4); PLATELET 90 x1000/uL (130-400)
[2019-06-21 18:58] LABS: PLATELET ESTIMATE DECREASED
[2019-06-21] MEDS ORDERED: ACETAMINOPHEN 325MG TABLET PO ONE (20:00)
[2019-06-21 20:26] LABS: CLARITY URINE CLEAR (CLEAR); COLOR URINE YELLOW (YELLOW); KETONES URINE NEGATIVE (NEGATIVE); LEUKOCYTE ESTERASE URINE NEGATIVE (NEGATIVE); NITRITE URINE NEGATIVE (NEGATIVE); OCCULT BLOOD URINE NEGATIVE (NEGATIVE); PH URINE 6.5 (4.5-8.0); PROTEIN URINE NEGATIVE (NEGATIVE); SPECIFIC GRAVITY URINE 1.007 (1.005-1.030)
[2019-06-21 20:55] LABS: *AMPHETAMINES SCREEN URINE NEGATIVE (NEGATIVE); *BARBITURATES SCREEN URINE NEGATIVE (NEGATIVE); *BENZODIAZEPINES SCREEN URINE NEGATIVE (NEGATIVE)
[2019-06-21 20:56] LABS: *COCAINE SCREEN URINE NEGATIVE (NEGATIVE); CANNABINOID URINE SCREEN NEGATIVE (NEGATIVE); METHADONE URINE SCREEN NEGATIVE (NEGATIVE); OPIATES URINE SCREEN NEGATIVE (NEGATIVE); PHENCYCLIDINE URINE SCREEN NEGATIVE (NEGATIVE)
[2019-06-22 00:07] VITALS: BP 129/72
== END 2019-06-22 00:08 | disposition home or self-care (01) ==
LOC: ER 15:58
DX: G92 Toxic encephalopathy (principal); F10.229 Alcohol dependence with intoxication, unspecified; Y90.8 Blood alcohol level of 240 mg/100 ml or more; E11.9 Type 2 diabetes mellitus without complications; E78.00 Pure hypercholesterolemia, unspecified; I10 Essential (primary) hypertension; F12.10 Cannabis abuse, uncomplicated; Z88.0 Allergy status to penicillin
CPT/HCPCS: 36415; 70450; 80053; 80305; 80307; 80320; 80329; 81003; 85025; 96365; 96366; 99284; J3411; J3490; J7070; G0480